=== PATIENT | male | born 1945 | race Caucasian/White ===

== ENCOUNTER 2019-05-15 03:13 | Emergency (ER) | payer MEDICARE ==
[~2019-05-15] VITALS: Ht 182.9 cm; Wt 113.0 kg
[~2019-05-15 03:13] MED LIST: ALBU8.5H8 IH; AMLO2.5T2 PO; APIX5TAB3 PO; ATOR40TA PO; CARV-50 PO; CHOL100046 PO; COMIN IH; FERR325T28 PO; FOLI1TAB16 PO; GABA-532 PO; HYDR-4353 PO; NIT10P TD; OMEP-84 PO; SPIIN IH; THI100T PO
[2019-05-15] MEDS ORDERED: ipratropium/albuterol 3ml nebule NEB ONE (03:30)
[2019-05-15 03:47] LABS: BASOPHILS # (AUTO) 0.1 X10'3 (0-0.2); BASOPHILS % (AUTO) 0.5 % (0-1); EOSINOPHILS # (AUTO) 0.2 X10'3 (0-0.9); EOSINOPHILS % (AUTO) 1.7 % (0-6); HEMATOCRIT 45.1 % (42.0-52.0); LYMPHOCYTES # (AUTO) 1.4 X10'3 (1.1-4.8); LYMPHOCYTES % (AUTO) 10.5 % (21-51); MEAN CORPUSCULAR HEMOGLOBIN 31.5 PG (27.0-31.0); MEAN CORPUSCULAR HGB CONC 33.4 g/dL (33.0-36.5); MEAN CORPUSCULAR VOLUME 94.3 FL (78-98); MEAN PLATELET VOLUME 7.3 FL (7.4-10.4); MONOCYTES # (AUTO) 0.9 X10'3 (0-0.9); MONOCYTES % (AUTO) 6.5 % (2-12); NEUTROPHILS # (AUTO) 10.9 X10'3 (1.8-7.7); NEUTROPHILS % (AUTO) 80.8 % (42-75); PLATELET COUNT 213 X10'3 (140-440); RED BLOOD COUNT 4.78 X10'6 (4.70-6.10); RED CELL DISTRIBUTION WIDTH 14.6 % (11.5-14.5); WHITE BLOOD COUNT 13.5 X10'3 (4.5-11.0)
[2019-05-15 04:04] LABS: ALANINE AMINOTRANSFERASE 22 U/L (12-78); ALBUMIN 3.6 G/DL (3.4-5.0); ALBUMIN/GLOBULIN RATIO 0.9 (1.1-1.5); ALKALINE PHOSPHATASE 116 IU/L (46-116); ANION GAP 11 (8-16); ASPARTATE AMINO TRANSFERASE 25 U/L (10-37); BILIRUBIN,TOTAL 0.4 MG/DL (0.1-1.0); BLOOD UREA NITROGEN 18 MG/DL (7-18); BUN/CREATININE RATIO 12.1 (5.4-32.0); CALCIUM 9.2 MG/DL (8.5-10.1); CHLORIDE 108 MMOL/L (99-107); CREATININE 1.49 MG/DL (0.60-1.10); GLUCOSE 115 MG/DL (70-104); POTASSIUM 3.9 MMOL/L (3.5-5.1); SODIUM 143 MMOL/L (135-145); TOTAL CARBON DIOXIDE 24.4 MMOL/L (24-32); TOTAL PROTEIN 7.4 G/DL (6.4-8.2); eGFR 46 ML/MIN
[2019-05-15 04:11] LABS: MAGNESIUM 1.7 MG/DL (1.5-2.4); TROPONIN I < 0.04 NG/ML (0.0-0.05)
[2019-05-15] MEDS ORDERED: diltiazem 5mg/ml 5ml inj. IV ONE (04:40)
[2019-05-15] MEDS ORDERED: diltiazem 30mg tablet PO ONE (04:40)
[2019-05-15] MEDS ORDERED: furosemide 10 MG/1 ML 10ml inj IV ONE (04:45)
[2019-05-15] MEDS ORDERED: predniSONE 20 mg tablet PO ONE (04:55)
[2019-05-15] MEDS ORDERED: IPRA3AMP31 IH (04:56)
[2019-05-15] MEDS ORDERED: PRED20TA PO (04:56)
[2019-05-15] MEDS ORDERED: LORA-268 PO (05:34)
[2019-05-15 05:48] VITALS: BP 137/101
== END 2019-05-15 05:51 | disposition home or self-care (01) ==
LOC: ER 03:13
DX: J44.9 Chronic obstructive pulmonary disease, unspecified (principal); I48.91 Unspecified atrial fibrillation; I25.10 Atherosclerotic heart disease of native coronary artery without angina pectoris; I11.0 Hypertensive heart disease with heart failure; I50.9 Heart failure, unspecified; I25.2 Old myocardial infarction; G47.30 Sleep apnea, unspecified; G89.29 Other chronic pain; Z86.2 Personal history of diseases of the blood and blood-forming organs and certain disorders involving the immune mechanism; Z98.61 Coronary angioplasty status; Z98.890 Other specified postprocedural states; Z87.891 Personal history of nicotine dependence; Z79.899 Other long term (current) drug therapy
CPT/HCPCS: 36415; 71045; 80053; 83735; 83880; 84145; 84484; 85025; 93005; 94640; 96374; 96375; 99284; J1940; J7512; 94760; J3490